=== PATIENT | female | born 1985 | race Hispanic/Latino ===

== ENCOUNTER → 2024-05-30 | Outpatient (CLI) | payer OTHER ==
[~2024-05-30] MED LIST: FENTanyl CITRate PF 50 MCG/1 ML 2ML VIAL ONE; GLYCOPYRROLATE 0.2 MG/ML 5 ML VIAL ONE; IBUP-2077 PO; MIDAZOLAM HCL 1 MG/ML 2ML VIAL ONE; NEOSTIGMINE METHYLSULFATE 1MG/ML IV ONE; PREN-114 PO; ondanSETRON 4MG INJ ONE; phenylEPHRINE HCL 10 MG/ML 1ML VIAL IV ONE; proPOFol 10 MG/ML 20ML VIAL IV ONE; rocuRONium bROMide 10MG/1ML 5ML VL ONE
== END | disposition home or self-care (01) ==
LOC: RAH 14:38
PROVIDERS: ATTEND Nurse Practitioner Family
DX: Z13.6 Encounter for screening for cardiovascular disorders (principal)
CPT/HCPCS: 75571; J2250; J2371; J2405; J2704; J2710; J3010; J3490